=== PATIENT | female | born 1985 | race Caucasian/White ===

== ENCOUNTER → 2020-03-18 | Outpatient (CLI) | payer MEDICAID ==
[~2020-03-18] MED LIST: FERR-71 MT; PREN-176 PO
== END | disposition home or self-care (01) ==
LOC: LAB 09:24
PROVIDERS: ATTEND Obstetrics & Gynecology
DX: Z11.59 Encounter for screening for other viral diseases (principal)
CPT/HCPCS: C9803; U0003

== ENCOUNTER 2020-03-21 05:33 | Inpatient (IN) | payer MEDICAID ==
[~2020-03-21] VITALS: Ht 157.5 cm; Wt 70.3 kg
[2020-03-21] MEDS ORDERED: FERR-71 MT (06:02)
[2020-03-21] MEDS ORDERED: PREN-176 PO (06:02)
[2020-03-21] MEDS ORDERED: LACTATED RINGERS 1,000 ML IV SCH (06:22)
[2020-03-21] MEDS ORDERED: METHYLERGONOVINE MALEATE 0.2 MG/ML IM PRN (06:30)
[2020-03-21] MEDS ORDERED: NALOXONE HCL 0.4 MG/ML 1ML VIAL IM PRN (06:30)
[2020-03-21] MEDS ORDERED: DEXT 5%/LR + PITOCIN 20UNITS/L 1,000 ML IV SCH (07:15)
[2020-03-21 07:20] LABS: BASOPHILS % 0.4 % (0.0-2.0); EOSINOPHILS % 0.8 % (0.0-5.0); HEMATOCRIT. 32.7 % (36.0-48.0); HEMOGLOBIN. 10.5 g/dL (12.0-16.0); LYMPHOCYTES % 17.6 % (20.0-50.0); MEAN CORPUSCULAR HEMOGLOBIN 24.1 pg (28.0-32.0); MEAN CORPUSCULAR VOLUME 75.3 fL (81.0-99.0); MEAN PLATELET VOLUME 9.2 fl (7.4-10.4); MONOCYTES % 7.9 % (2.0-8.0); NEUTROPHILS % 73.3 % (40.0-76.0); PLATELET 184 x1000/uL (130-400); RED BLOOD CELL COUNT 4.34 mill/uL (4.2-5.4); RED CELL DISTRIBUTION WIDTH 21.4 % (11.6-14.6)
[2020-03-21 07:31] LABS: INR 0.9; PARTIAL THROMBOPLASTIN TIME 27.9 sec (23.4-31.0); PROTHROMBIN TIME 9.5 sec (9.6-11.0)
[2020-03-21 07:32] LABS: CLARITY URINE CLOUDY (CLEAR); COLOR URINE YELLOW (YELLOW); KETONES URINE NEGATIVE (NEGATIVE); LEUKOCYTE ESTERASE URINE 2+ (NEGATIVE); NITRITE URINE NEGATIVE (NEGATIVE); OCCULT BLOOD URINE NEGATIVE (NEGATIVE); PROTEIN URINE NEGATIVE (NEGATIVE); SPECIFIC GRAVITY URINE 1.017 (1.005-1.030)
[2020-03-21 07:58] LABS: HEPATITIS B SURFACE ANTIGEN NEGATIVE
[2020-03-21] MEDS ORDERED: FENTANYL CITRATE/PF 50MCG/ML 2ML VIAL ONE (08:00)
[2020-03-21] MEDS ORDERED: MORPHINE SULFATE/PF 1MG/ML 10ML AMP ONE (08:00)
[2020-03-21] MEDS ORDERED: MEPERIDINE HCL/PF 25MG/ML CPJ IV PRN (08:45)
[2020-03-21] MEDS ORDERED: ONDANSETRON HCL 4MG/2ML INJ IV PRN (08:45)
[2020-03-21] MEDS ORDERED: LABETALOL 5MG/ML SYR 20 MG/4 ML SYRINGE IV PRN (08:45)
[2020-03-21] MEDS ORDERED: BUTORPHANOL TARTRATE 2 MG/ML VIAL IM PRN (08:45)
[2020-03-21] MEDS ORDERED: KETOROLAC 30MG/ML VIAL IV PRN (08:45)
[2020-03-21] MEDS ORDERED: DIPHENHYDRAMINE 50MG/ML VIAL IV NR (08:45)
[2020-03-21] MEDS ORDERED: HYDROMORPHONE HCL/PF 2MG/ML CPJ IV PRN (08:45)
[2020-03-21 08:54] LABS: *BARBITURATES SCREEN URINE NEGATIVE (NEGATIVE)
[2020-03-21 08:55] LABS: *AMPHETAMINES SCREEN URINE NEGATIVE (NEGATIVE); *BENZODIAZEPINES SCREEN URINE NEGATIVE (NEGATIVE); *COCAINE SCREEN URINE NEGATIVE (NEGATIVE)
[2020-03-21 08:56] LABS: METHADONE URINE SCREEN NEGATIVE (NEGATIVE); OPIATES URINE SCREEN NEGATIVE (NEGATIVE); PHENCYCLIDINE URINE SCREEN NEGATIVE (NEGATIVE)
[2020-03-21] MEDS ORDERED: CEFAZOLIN SODIUM 1000MG/VIAL ONE (08:58)
[2020-03-21] MEDS ORDERED: SODIUM CHLORIDE 0.9% 10ML VIAL ONE (08:58)
[2020-03-21 09:05] LABS: CANNABINOID URINE SCREEN NEGATIVE (NEGATIVE)
[2020-03-21 12:10] VITALS: BP 99/57
[2020-03-21 12:40] VITALS: BP 96/55
[2020-03-21 17:00] VITALS: BP 109/51
[2020-03-21 19:30] VITALS: BP 101/57
[2020-03-21 23:48] VITALS: BP 118/69
[2020-03-22 08:00] VITALS: BP 111/62
[2020-03-22] MEDS ORDERED: LANOLIN OINT 7GM TUBE TOP PRN (09:15)
[2020-03-22] MEDS ORDERED: IBUPROFEN 400MG TABLET PO PRN (09:15)
[2020-03-22] MEDS ORDERED: ONDANSETRON HCL 4MG/2ML INJ IV PRN (09:15)
[2020-03-22] MEDS ORDERED: BISACODYL 10MG SUPP PR PRN (09:15)
[2020-03-22] MEDS ORDERED: HYDROCODONE/ACETAMINOPHEN 5/325MG TABLET PO PRN (09:15)
[2020-03-22] MEDS ORDERED: HEMORRHOIDAL SUPP PR PRN (09:15)
[2020-03-22] MEDS: IBUPROFEN 800MG TABLET PO PRN ×2 (10:35→18:30)
[2020-03-22 13:35] LABS: BASOPHILS % 0.3 % (0.0-2.0); EOSINOPHILS % 0.2 % (0.0-5.0); HEMATOCRIT. 29.2 % (36.0-48.0); HEMOGLOBIN. 9.4 g/dL (12.0-16.0); LYMPHOCYTES % 7.1 % (20.0-50.0); MEAN CORPUSCULAR HEMOGLOBIN 24.5 pg (28.0-32.0); MEAN PLATELET VOLUME 8.5 fl (7.4-10.4); MONOCYTES % 5.1 % (2.0-8.0); NEUTROPHILS % 87.3 % (40.0-76.0); PLATELET 191 x1000/uL (130-400); RED BLOOD CELL COUNT 3.84 mill/uL (4.2-5.4); RED CELL DISTRIBUTION WIDTH 21.5 % (11.6-14.6)
[2020-03-22] MEDS: SIMETHICONE 80MG TABLET CHEW PO SCH ×3 (14:02→21:17)
[2020-03-22 17:30] VITALS: BP 112/68
[2020-03-22 19:30] VITALS: BP 112/60
[2020-03-22] MEDS ORDERED: DOCUSATE SODIUM 100MG CAPSULE PO SCH (21:00)
[2020-03-22] MEDS ORDERED: AMOXICILLIN/POTASSIUM CLAVULANATE 875/125MG TAB PO SCH (21:00)
[2020-03-23] MEDS: IBUPROFEN 800MG TABLET PO PRN ×3 (03:55→13:23)
[2020-03-23 04:00] VITALS: BP 118/74
[2020-03-23] MEDS ORDERED: FERROUS SULFATE 325MG TABLET PO SCH (07:30)
[2020-03-23 08:00] VITALS: BP 108/68
[2020-03-23] MEDS ORDERED: PRENATAL VIT/FE FUMARATE/FA TABLET PO SCH (09:00)
== END 2020-03-23 15:15 | disposition home or self-care (01) | DRG 540 ==
LOC: 8 EST LDRP 05:33 → 8EST 10:55
PROVIDERS: ADMIT Obstetrics & Gynecology; ATTEND Obstetrics & Gynecology
PROC: 10D00Z1 Extraction of Products of Conception, Low, Open Approach (ICD-10-PCS; principal; 2020-03-21)
DX: O32.1XX0 Maternal care for breech presentation, not applicable or unspecified (principal); Z37.0 Single live birth; Z3A.40 40 weeks gestation of pregnancy; Z83.3 Family history of diabetes mellitus
CPT/HCPCS: 36415; 80305; 81003; 85025; 86592; 86703; 86762; 86850; 86900; 87340; 88307; J0690; J1885; J2274; J2590; J3010; J7120